=== PATIENT | male | born 1985 ===

== ENCOUNTER 2018-07-10 10:44 | Day surgery (SDC) | payer OTHER ==
[2018-07-10] VITALS (12 sets, daily range): BP systolic 108–129; BP diastolic 52–85
[~2018-07-10] VITALS: Ht 161.3 cm; Wt 84.2 kg
[2018-07-10] MEDS ORDERED: MAGN400O6 PO (11:15)
[2018-07-10] MEDS ORDERED: LEVA15HF4 INH (11:15)
[2018-07-10] MEDS ORDERED: ACET-2119 PO (11:15)
[2018-07-10] MEDS ORDERED: IBUP-1984 PO (11:21)
[2018-07-10] MEDS ORDERED: famotidine 20mg tablet PO ONE (11:23)
[2018-07-10] MEDS ORDERED: DOCUMENT DATE & TIME OF BETA-BLOCKER PO ONE (11:24)
[2018-07-10] MEDS ORDERED: gabapentin 300mg capsule PO ONE (11:24)
[2018-07-10] MEDS ORDERED: cefazolin/dext.iso 2gm/100 ML IV ONE (11:24)
[2018-07-10] MEDS ORDERED: oxyCODONE SR 10mg (sust. release) tab -2 tabs (20mg) PO ONE (11:24)
[2018-07-10] MEDS ORDERED: acetaminophen 325mg tablet PO ONE (11:24)
[2018-07-10] MEDS ORDERED: ringers solution, lacted 1,000 ML IV SCH ×2 (11:24→14:03)
[2018-07-10 11:31] LABS: BASOPHILS % (AUTO) 0.2 % (0-1); EOSINOPHILS # (AUTO) 0.1 X10'3 (0-0.9); EOSINOPHILS % (AUTO) 1.6 % (0-6); HEMATOCRIT 43.7 % (42.0-52.0); HEMOGLOBIN 14.8 g/dl (14.0-17.9); LYMPHOCYTES # (AUTO) 1.4 X10'3 (1.1-4.8); MEAN CORPUSCULAR HEMOGLOBIN 29.8 PG (27.0-31.0); MEAN CORPUSCULAR HGB CONC 33.9 % (33.0-36.5); MEAN CORPUSCULAR VOLUME 87.9 FL (78-98); MEAN PLATELET VOLUME 8.5 FL (7.4-10.4); MONOCYTES # (AUTO) 0.5 X10'3 (0-0.9); MONOCYTES % (AUTO) 6.4 % (2-12); NEUTROPHILS # (AUTO) 5.5 X10'3 (1.8-7.7); NEUTROPHILS % (AUTO) 72.8 % (42-75); PLATELET COUNT 322 X10'3 (140-440); RED BLOOD COUNT 4.96 X10'6 (4.70-6.10); RED CELL DISTRIBUTION WIDTH 13.4 % (11.5-14.5); WHITE BLOOD COUNT 7.6 X10'3 (4.5-11.0)
[2018-07-10 11:46] LABS: ALANINE AMINOTRANSFERASE 36 U/L (12-78); ALBUMIN 4.2 G/DL (3.4-5.0); ALBUMIN/GLOBULIN RATIO 1.3 (1.1-1.5); ALKALINE PHOSPHATASE 72 IU/L (46-116); ANION GAP 5 (8-16); ASPARTATE AMINO TRANSFERASE 21 U/L (10-37); BILIRUBIN,TOTAL 0.5 MG/DL (0.1-1.0); BLOOD UREA NITROGEN 16 MG/DL (7-18); BUN/CREATININE RATIO 12.6 (5.4-32.0); CALCIUM 9.3 MG/DL (8.5-10.1); CHLORIDE 103 MMOL/L (99-107); CREATININE 1.27 MG/DL (0.60-1.10); GLUCOSE 97 MG/DL (70-104); POTASSIUM 4.3 MMOL/L (3.5-5.1); SODIUM 138 MMOL/L (135-145); TOTAL CARBON DIOXIDE 29.8 MMOL/L (24-32); TOTAL PROTEIN 7.4 G/DL (6.4-8.2); eGFR 66 ML/MIN
[2018-07-10] MEDS ORDERED: ceFAZolin 1000mg inj ONE (12:07)
[2018-07-10] MEDS ORDERED: sevoflurane 250ml liquid IH ONE (13:14)
[2018-07-10] MEDS ORDERED: dexamethasone sod phosphate 10mg/ml inj ONE (13:14)
[2018-07-10] MEDS ORDERED: ROPIVAcaine 0.5% (5mg/ml) 30ml vial ONE (13:16)
[2018-07-10] MEDS ORDERED: fentaNYL/PF 50MCG/1 ML 2ML syringe ONE (13:23)
[2018-07-10] MEDS ORDERED: midazolam 2 mg/2 ml injection ONE (13:40)
[2018-07-10] MEDS ORDERED: ketorolac trometh. 30mg/ml inj. ONE (13:47)
[2018-07-10] MEDS ORDERED: ondansetron/PF 4mg/2ml inj ONE (13:47)
[2018-07-10] MEDS ORDERED: propofol inj 20 ML IV ONE (13:47)
[2018-07-10] MEDS ORDERED: LIDOcaine 1%/PF 5ML 10 MG/ML VIAL ONE (13:47)
[2018-07-10] MEDS ORDERED: enalaprilat dihydrate 2.5mg/2ml vial IV PRN (14:05)
[2018-07-10] MEDS ORDERED: ondansetron/PF 4mg/2ml inj IV PRN (14:05)
[2018-07-10] MEDS ORDERED: hydrALAZINE 20mg/ml inj. IV PRN (14:05)
[2018-07-10] MEDS ORDERED: morphine 4 MG/ML inj SYRINge IV PRN ×2 (14:05)
[2018-07-10] MEDS ORDERED: meperidine/PF 25mg/ml syringe IV PRN (14:05)
--- NOTE | 2018-07-10 14:42 | NUR ---
Received from OR via [facility], accompanied by Anesthesiologist DR FERREIRA and report given by Anesthesiologist. PT DROWSY, DENIES PAIN, RIGHT LEG W/DRSG W/ROCHELLE WRAP COVERING CDI IN LEG IMMOBILIZER SET @0. Addendum: 07/10/18 at 1541 by Chelsie Ramesh RN Amended: Links added.
[2018-07-10] MEDS ORDERED: meperidine/PF 25mg/ml syringe ONE (15:23)
[2018-07-10] MEDS: meperidine/PF 25mg/ml syringe IV PRN ×2 (15:27→15:49)
[2018-07-10] MEDS ORDERED: HYDROcodone/acetaminophen 10/325mg tab PO ONE (15:30)
--- NOTE | 2018-07-10 16:40 | NUR ---
PT PAIN LEVEL TRENDING DOWN AFTER MEDS GIVEN. TOLERATED PO FLUIDS WELL, ATE UNA CRACKERS TO TAKE NORCO WITH. VSS. DC INSTRUCTIONS GIVEN TO C/O'S. PT DCD IN STABLE CONDITION, TAKEN TO TRANSPORT VEHICLE VIA .
== END 2018-07-10 16:40 ==
LOC: PAS 10:44 → EEVIPCON 12:15 → PAS 16:40
PROVIDERS: ATTEND Orthopaedic Surgery
DX: S76.112A Strain of left quadriceps muscle, fascia and tendon, initial encounter (principal); X58.XXXA Exposure to other specified factors, initial encounter; Y93.9 Activity, unspecified; Y92.9 Unspecified place or not applicable; Y99.9 Unspecified external cause status; G89.18 Other acute postprocedural pain; Z79.899 Other long term (current) drug therapy; Z98.890 Other specified postprocedural states
CPT/HCPCS: 27380; 36415; 64445; 80053; 82948; 85025; J0690; J1100; J1885; J2001; J2175; J2250; J2405; J2704; J3010; J7120; L1832; A6449; A7000; J2795